=== PATIENT | female | born 1960 | race Caucasian/White ===

== ENCOUNTER 2022-08-16 19:58 | Emergency (ER) | payer SELFPAY ==
[2022-08-16] MEDS ORDERED: TDAP (DIPHTH,PERTUSS(ACELL),TET VAC) 0.5 ML VIAL IMVAC ONE (20:24)
--- NOTE | 2022-08-16 21:03 | RAD REPORT ---
EXAM DESCRIPTION: CT - CTHCSPWOC - 08/16/2022 8:46 pm CLINICAL HISTORY: Trauma, head and neck injury. fall, head/face injury COMPARISON: No comparisons TECHNIQUE: Axial 5 mm thick images of the head were obtained. Axial 2 mm thick images of the cervical spine were obtained with sagittal and coronal reconstruction images generated and reviewed. All CT scans are performed using dose optimization technique as appropriate and may include automated exposure control or mA/KV adjustment according to patient size. FINDINGS: CT HEAD WITHOUT CONTRAST: No acute hemorrhage, hydrocephalus or extra-axial collection is identified.No areas of brain edema or midline shift. Right forehead hematoma. The paranasal sinuses and mastoids are clear.The calvarium is intact. CT CERVICAL SPINE WITHOUT CONTRAST: No fracture or subluxation.No prevertebral soft tissues swelling is identified. Paraseptal emphysema. Sebaceous cyst at the posterior midline of the lower neck. Multilevel cervical spondylosis with vary ing degrees of neural foraminal narrowing. Moderate central spinal stenosis C5-6. Trace retrolisthesi s of C4 on C5. IMPRESSION: No acute intracranial or cervical spine findings.
--- NOTE | 2022-08-16 21:09 | RAD REPORT ---
EXAM DESCRIPTION: CT - CTFB CLINICAL HISTORY: fall, facial/head injury COMPARISON: Head C Spine Mpr Wo Con dated 08/16/2022 TECHNIQUE: Axial 2 mm thick images of the face were obtained with sagittal and coronal reconstructio n images. All CT scans are performed using dose optimization technique as appropriate and may include automated exposure control or mA/KV adjustment according to patient size. FINDINGS: No acute facial bone fracture is seen.The mandible is intact. The globes and orbital contents are grossly unremarkable.Trace right maxillary sinus thickening. Carotid artery calcifications. Periapical lucencies are present at the mandibular left lateral inciso r, canine, and right mandibular premolar. Most of the teeth are absent. IMPRESSION: Negative for facial bone fracture.
--- NOTE | 2022-08-16 21:31 | EDPHYS ---
Physician Documentation [facility] Name: Cassandra Marti Age: 62 yrs Sex: Female : 1960 Arrival Date: 08/16/2022 Time: 19:59 Bed 9 Private MD: ED Physician Beth Bose HPI: 08/16 20:16 This 62 yrs old Female presents to ER via Ambulatory with complaints of Fall Injury, sd2 Facial Injury. 20:16 62 yo F presents with CC of trip and fall in a parking lot hitting her face and hands sd2 on the concrete. Denies LOC or blood thinner use. Has abrasions to face and right hand and placed ice on the forehead prior to arrival with some improvement. Denies any significant pain to face or neck or back pain. Ambulatory without difficulty. Unknown last tetanus.. Historical: - Allergies: 20:06 PENICILLINS; hb - Immunization history:: Adult Immunizations up to date, Last tetanus immunization: < 10 years ago. - Social history:: Smoking status: Patient denies any tobacco usage or history of. ROS: 20:16 Constitutional: Negative for fever, chills, and weight loss, Eyes: Negative for injury, sd2 pain, redness, and discharge, Neck: Negative for injury, pain, and swelling, Cardiovascular: Negative for chest pain, palpitations, and edema, Respiratory: Negative for shortness of breath, cough, wheezing. Abdomen/GI: Negative for abdominal pain, nausea, vomiting, diarrhea. Back: Negative for injury and pain, MS/Extremity: Negative for injury and deformity, Skin: Negative for injury, rash, and discoloration, Neuro: Negative for headache, numbness and tingling. Exam: 20:16 Constitutional: This is a well developed, well nourished patient who is awake, alert, sd2 and in no acute distress. Head/Face: Normocephalic, abrasions noted to forehead, nose and chin with small R sided forehead hematoma Eyes: EOMI, normal conjunctiva bilaterally Chest/axilla: Normal chest wall appearance and motion. Nontender with no deformity. Cardiovascular: Regular rate and rhythm with a normal S1 and S2. No gallops, murmurs, or rubs. 2+ distal pulses. Respiratory: Lungs have equal breath sounds bilaterally, clear to auscultation and percussion. No rales, rhonchi or wheezes noted. No increased work of breathing, no retractions or nasal flaring. Abdomen/GI: Soft, non-tender, with normal bowel sounds. No guarding or rebound. No evidence of tenderness throughout. Skin: Warm, dry with normal turgor. Normal color with no rashes, no lesions, and no evidence of cellulitis. Abrasions noted to R hand in addition to face as previously described. MS/ Extremity: Pulses equal, no cyanosis. Neurovascular intact. Full, normal range of motion. Ambulatory without difficulty. Neuro: Awake and alert, GCS 15, oriented to person, place, time, and situation. Cranial nerves II-XII grossly intact. Motor strength 5/5 in all extremities. Sensory grossly intact. Cerebellar exam normal. Normal gait. Psych: Awake, alert, with orientation to person, place and time. Behavior, mood, and affect are within normal limits. Vital Signs: 20:05 BP 136 / 75; Pulse 86; Resp 16; Temp 98; Pulse Ox 100% on R/A; Weight 65.77 kg; Height hb 5 ft. 5 in. (165.10 cm); Pain 2/10; 20:05 Body Mass Index 24.13 (65.77 kg, 165.10 cm) hb Paola Coma Score: 20:05 Eye Response: spontaneous(4). Verbal Response: oriented(5). Motor Response: obeys hb commands(6). Total: 15. Trauma Score (Adult): 20:05 Eye Response: spontaneous(1); Verbal Response: oriented(1); Motor Response: obeys hb commands(2); Systolic BP: > 89 mm Hg(4); Respiratory Rate: 10 to 29 per min(4); Paola Score: 15; Trauma Score: 12 MDM: 20:16 Patient medically screened. sd2 20:16 Differential diagnosis: abrasion, closed head injury, contusion, fracture, laceration, sd2 multiple trauma, sprain, strain, among others. Data reviewed: vital signs, nurses notes. 21:28 Data reviewed: radiologic studies. Counseling: I had a detailed discussion with the sd2 patient and/or guardian regarding: the historical points, exam findings, and any diagnostic results supporting the discharge/admit diagnosis, radiology results, the need for outpatient follow up, to return to the emergency department if symptoms worsen or persist or if there are any questions or concerns that arise at home. Medical screen evaluation completed. [facility]. ED course: Imaging reviewed with no acute traumatic findings. Pt's pain is well controlled. Tetanus updated. Pt comfortable with plan for discharge with outpatient follow up regarding head injury and continued supportive care. Verbalizes understanding of discharge plan and strict return precautions. . 08/16 20:16 Order name: CT Head C Spine; Complete Time: 21:21 sd2 08/16 20:16 Order name: CT Facial Bones W/O Con; Complete Time: 21:21 sd2 Administered Medications: 20:30 Drug: Tetanus-Diphtheria Toxoid Adult 0.5 ml {Operations Examiner: [employer] ([employer]). Exp: pf1 01/06/2023. Lot #: [id number]. } Route: IM; Site: right deltoid; Disposition Summary: 08/16/22 21:30 Discharge Ordered Location: Home sd2 Problem: new sd2 Symptoms: have improved sd2 Condition: Stable sd2 Diagnosis - Unspecified injury of head, initial encounter sd2 - Facial abrasions sd2 - Abrasions of right hand sd2 Followup: sd2 - With: Private Physician - When: 1 week - Reason: Recheck today's complaints, Continuance of care, Re-evaluation by your physician Discharge Instructions: - Discharge Summary Sheet sd2 - Abrasion sd2 - Head Injury, Adult sd2 Forms: - Medication Reconciliation Form sd2 - Thank You Letter sd2 - Antibiotic Education sd2 - Prescription Opioid Use sd2 Signatures: Dispatcher [employer] EDMS Rashmi Hastings RN RN Beth Bose MD MD sd2 Cecilia weber RN RN pf1
--- NOTE | 2022-08-16 21:31 | ER ---
Nurse's Notes [facility] Name: Cassandra Marti Age: 62 yrs Sex: Female : 1960 Arrival Date: 08/16/2022 Time: 19:59 Bed 9 Private MD: Diagnosis: Unspecified injury of head, initial encounter;Facial abrasions;Abrasions of right hand Presentation: 08/16 20:03 Chief complaint: Tripped while carrying groceries and landed face first on concrete hb approx 30 mins GENERAL MAGISTRATE, c/o pain in face, left knee, and right hand. Negative LOC, not on blood thinners. Abrasions noted to face, right hand, and left knee. Bleeding controlled. Care prior to arrival: None. Mechanism of Injury: Fall from standing position. Trauma event details: Injury occurred in the [facility], Injury occurred: at home. Injury occurred: August 16, 2022. 20:03 Acuity: REVA 4 hb 20:03 Method Of Arrival: Ambulatory hb 20:05 Coronavirus screen: At this time, the client does not indicate any symptoms associated hb with coronavirus-19. Ebola Screen: No symptoms or risks identified at this time. Initial Sepsis Screen: Does the patient meet any 2 criteria? No. Patient's initial sepsis screen is negative. Does the patient have a suspected source of infection? No. Patient's initial sepsis screen is negative. Risk Assessment: Do you want to hurt yourself or someone else? Patient reports no desire to harm self or others. Onset of symptoms was August 16, 2022. Trauma Activation: Not Applicable Physician: ED Physician; Name: ; Notified At: ; Arrived At: Physician: General Surgeon; Name: ; Notified At: ; Arrived At: Physician: Radiology; Name: ; Notified At: ; Arrived At: Physician: Respiratory; Name: ; Notified At: ; Arrived At: Physician: Lab; Name: ; Notified At: ; Arrived At: Historical: - Allergies: 20:06 PENICILLINS; hb - Immunization history:: Adult Immunizations up to date, Last tetanus immunization: < 10 years ago. - Social history:: Smoking status: Patient denies any tobacco usage or history of. Screenin:05 Abuse screen: Denies threats or abuse. Denies injuries from another. Tuberculosis hb screening: No symptoms or risk factors identified. 20:22 [facility] ED Fall Risk Assessment (Adult) History of falling in the last 3 months, hb including since admission Yes- single mechanical fall (1 pt) Confusion or Disorientation No (0 pts) Intoxicated or Sedated No (0 pts) Impaired Gait No (0 pts) Mobility Assist Device Used No (0 pt) Altered Elimination No (0 pt) Score/Fall Risk Level 0 - 2 = Low Risk Oriented to surroundings, Maintained a safe environment. Nutritional screening: No deficits noted. Primary Survey: 20:05 NO uncontrolled hemorrhage observed. A: The client is awake and alert. The airway is hb patent. Breathing/Chest: Spontaneous respiratory effort, equal unlabored respirations, breath sounds clear bilaterally, regular pattern, symmetrical chest rise and fall. Circulation: No external hemorrhage present. Regular and strong central pulse, skin warm/dry/normal color. Disability Pupils are equal, round, reactive to light and accommodation. Client is alert. Exposure/Environment: There is no evidence of uncontrolled external bleeding. abrasions noted to face, left knee, right hand. Secondary Survey: 20:05 HEENT: Face Other abrasions noted to bridge of nose, forehead, right cheek, and chin. hb Gastrointestinal: No deficits noted. : No deficits noted. No signs and/or symptoms were reported regarding the genitourinary system. Musculoskeletal: Reports left knee and right hand pain. Injury Description:. Assessment: 20:20 General: Appears in no apparent distress. Behavior is calm, cooperative. Pain: Pain hb currently is 2 out of 10 on a pain scale. Neuro: Level of Consciousness is awake, alert, obeys commands, Oriented to person, place, time, situation. Cardiovascular: Patient's skin is warm and dry. Respiratory: Respiratory effort is even, unlabored, Respiratory pattern is regular, symmetrical. GI: No signs and/or symptoms were reported involving the gastrointestinal system. : No signs and/or symptoms were reported regarding the genitourinary system. EENT: No signs and/or symptoms were reported regarding the EENT system. Derm: Skin is pink, warm \T\ dry. Musculoskeletal: Reports pain in left knee, right hand, and face. Injury Description: Abrasion. 20:34 General: Appears in no apparent distress. comfortable, well groomed, well developed, pf1 Behavior is calm, cooperative, quiet. Pain: Complains of pain in face and left knee and right hand Pain currently is 2 out of 10 on a pain scale. Neuro: No deficits noted. Level of Consciousness is awake, alert, obeys commands, Oriented to person, place, time, situation. Cardiovascular: No deficits noted. Capillary refill < 3 seconds. Respiratory: No deficits noted. Airway is patent Respiratory effort is even, unlabored, Respiratory pattern is regular, symmetrical. GI: No deficits noted. No signs and/or symptoms were reported involving the gastrointestinal system. Abdomen is flat, non-distended, Bowel sounds present X 4 quads. Abd is soft and non tender X 4 quads. : No deficits noted. No signs and/or symptoms were reported regarding the genitourinary system. EENT: No deficits noted. No signs and/or symptoms were reported regarding the EENT system. Derm: Skin multiple contusions. Musculoskeletal: No deficits noted. Reports Pain is 2 out of 10 on a pain scale. Injury Description: Abrasion sustained to multiple abrasions to face, right hand and left knee. Vital Signs: 20:05 BP 136 / 75; Pulse 86; Resp 16; Temp 98; Pulse Ox 100% on R/A; Weight 65.77 kg; Height hb 5 ft. 5 in. (165.10 cm); Pain 2/10; 20:05 Body Mass Index 24.13 (65.77 kg, 165.10 cm) hb Harrington Coma Score: 20:05 Eye Response: spontaneous(4). Verbal Response: oriented(5). Motor Response: obeys hb commands(6). Total: 15. Trauma Score (Adult): 20:05 Eye Response: spontaneous(1); Verbal Response: oriented(1); Motor Response: obeys hb commands(2); Systolic BP: > 89 mm Hg(4); Respiratory Rate: 10 to 29 per min(4); Paola Score: 15; Trauma Score: 12 ED Course: 19:59 Patient arrived in ED. ja2 20:02 Beth Bose MD is Attending Physician. sd2 20:05 Triage completed. hb 20:05 Patient has correct armband on for positive identification. hb 20:05 Patient maintains SpO2 saturation greater than 95% on room air. hb 20:06 Arm band placed on. hb 20:19 weber, Cecilia, RN is Primary Nurse. pf1 20:47 CT Head C Spine In Process Unspecified. EDMS 20:47 CT Facial Bones W/O Con In Process Unspecified. EDMS 21:38 No provider procedures requiring assistance completed. Patient did not have IV access hb during this emergency room visit. Administered Medications: 20:30 Drug: Tetanus-Diphtheria Toxoid Adult 0.5 ml {Knot Picker Cloth: [employer] ([employer]). Exp: pf1 01/06/2023. Lot #: [id number]. } Route: IM; Site: right deltoid; Intake: 20:05 PO: 0ml; Total: 0ml. hb Outcome: 21:30 Discharge ordered by . sd2 21:38 Discharged to home ambulatory. hb 21:38 Condition: stable 21:38 Discharge instructions given to patient, Instructed on discharge instructions, follow up and referral plans. medication usage, Demonstrated understanding of instructions, follow-up care, medications. 21:39 Patient left the ED. hb Signatures: Dispatcher [employer] EDMS Rashmi Hastings RN RN Cesia Landa Stephanie, MD MD sd2 Cecilia weber RN RN pf1 Corrections: (The following items were deleted from the chart) 20:07 20:05 BP 148 / 88; Pulse 86bpm; Resp 16bpm; Pulse Ox 100% RA; Temp 98F; 65.77 kg; hb Height 5 ft. 5 in.; BMI: 24.1; Pain 2/10; hb
[2022-08-16 21:44] VITALS: BP 136/75; TEMP 98; O2SAT 100
== END 2022-08-16 21:39 | disposition home or self-care (01) ==
LOC: ER 19:58
DX: S00.81XA Abrasion of other part of head, initial encounter (principal); S60.511A Abrasion of right hand, initial encounter; S80.212A Abrasion, left knee, initial encounter; S09.90XA Unspecified injury of head, initial encounter; Z23 Encounter for immunization; Z88.0 Allergy status to penicillin
CPT/HCPCS: 70450; 70486; 72125; 76377; 90471; 99284